=== PATIENT | female | born 1980 | race Caucasian/White ===

== ENCOUNTER 2019-06-03 12:07 | Emergency (ER) | payer BC ==
[2019-06-03 12:19] VITALS: BMI 27.4
[2019-06-03] MEDS ORDERED: ACETAMINOPHEN 1000 MG/100 ML VIAL (NON FORMULARY) IVPB ONE (13:35)
[2019-06-03] MEDS ORDERED: SODIUM CHLORIDE 0.9% 500 ML INFUS.BAG IV ONE (13:35)
[2019-06-03] MEDS ORDERED: ACETAMINOPHEN INJECTION 100 ML IVPB ONE (13:38)
--- NOTE | 2019-06-03 13:43 | PDOC ---
History of Present Illness <Aisha Greco - Last Filed: 06/03/19 16:28> - General History Source: Patient Exam Limitations: No Limitations <Remberto Ribera - Last Filed: 06/03/19 16:43> - General Chief Complaint: Syncope/Near Syncope Stated Complaint: DIABETES, FALL Time Seen by Provider: 06/03/19 12:20 Past History <Aisha Greco - Last Filed: 06/03/19 16:28> - Past Medical History Cardiac Disorders: Yes (angina) COPD: No Diabetes: Yes GI Disorders: Yes (gerd) HTN: Yes Hypercholesterolemia: Yes Thyroid Disease: No - Immunization History Immunization Up to Date: Yes - Psycho Social/Smoking Cessation Hx Smoking History: Never smoked Have you smoked in the past 12 months: No Information on smoking cessation initiated: No Hx Alcohol Use: No Drug/Substance Use Hx: No Substance Use Type: None <BacilioRemberto - Last Filed: 06/03/19 16:43> - Past Medical History Allergies/Adverse Reactions: Allergies Allergy/AdvReac Type Severity Reaction Status Date / Time No Known Allergies Allergy Verified 06/03/19 12:14 Home Medications: Ambulatory Orders Aspirin [ASA -] 81 mg PO DAILY 02/18/16 Atorvastatin Ca [Lipitor] 20 mg PO HS 02/18/16 Enalapril Maleate [Vasotec] 2.5 mg PO DAILY 02/18/16 Insulin Glargine,Hum.rec.anlog [Lantus Solostar] 24 unit SQ HS 06/03/19 Metformin HCl [Glucophage] 500 mg PO BID 06/03/19 Metoprolol Succinate 25 mg PO DAILY 06/03/19 Pantoprazole Sodium 40 mg PO DAILY 06/03/19 Sucralfate Oral Suspension [Carafate *Oral Susp*] 1 gm PO BID 06/03/19 Review of Systems - Review of Systems Able to Perform ROS?: Yes Is the patient limited Tajik proficient: No <BacilioRemberto - Last Filed: 06/03/19 16:43> *Physical Exam - Vital Signs Last Vital Signs Temp Pulse Resp BP Pulse Ox 98 F 60 20 118/74 98 06/03/19 12:14 06/03/19 14:40 06/03/19 14:40 06/03/19 14:40 06/03/19 14:40 <Aisha Greco Fanniedomingothor - Last Filed: 06/03/19 16:28> - Vital Signs Last Vital Signs Temp Pulse Resp BP Pulse Ox 98 F 62 18 134/83 100 06/03/19 12:14 06/03/19 12:14 06/03/19 12:14 06/03/19 12:14 06/03/19 12:35 <BacilioRemberto - Last Filed: 06/03/19 16:43> ED Treatment Course - LABORATORY CBC & Chemistry Diagram: 06/03/19 13:30 06/03/19 13:30 - ADDITIONAL ORDERS Additional order review: Laboratory Results 06/03/19 06/03/19 06/03/19 13:45 13:30 13:30 PT with INR 12.20 INR 1.03 PTT (Actin FS) 42.9 H Sodium 136 Potassium 4.4 Chloride 103 Carbon Dioxide 28 Anion Gap 6 L BUN 18.6 H Creatinine 0.7 Est GFR (CKD-EPI)AfAm 124.73 Est GFR (CKD-EPI)NonAf 107.62 POC Glucometer Random Glucose 137 H Calcium 9.8 Total Bilirubin 0.4 AST 14 L ALT 24 Alkaline Phosphatase 84 Creatine Kinase Troponin I Total Protein 8.5 H Albumin 4.5 Serum , Qual Negative 06/03/19 06/03/19 13:30 12:42 PT with INR INR PTT (Actin FS) Sodium Potassium Chloride Carbon Dioxide Anion Gap BUN Creatinine Est GFR (CKD-EPI)AfAm Est GFR (CKD-EPI)NonAf POC Glucometer 145 Random Glucose Calcium Total Bilirubin AST ALT Alkaline Phosphatase Creatine Kinase 84 Troponin I < 0.02 Total Protein Albumin Serum , Qual 06/03/19 06/03/19 13:30 12:42 RBC 5.16 MCV 83.5 MCHC 33.8 RDW 14.1 MPV 7.6 Neutrophils % 81.4 Lymphocytes % 12.9 D Monocytes % 4.5 Eosinophils % 1.0 Basophils % 0.2 POC Glucometer 145 - Medications Given in the ED: ED Medications Discontinued Medications Generic Name Dose Route Start Last Admin Trade Name Freq PRN Reason Stop Dose Admin Acetaminophen 1,000 mg 06/03/19 13:35 06/03/19 13:53 Ofirmev Injection - IVPB 06/03/19 13:36 1,000 mg ONCE ONE Administration Sodium Chloride 1,000 ml 06/03/19 13:35 06/03/19 13:53 Normal Saline - IV 06/03/19 13:36 1,000 ml ONCE ONE Administration <FannieAisha Mukherjee - Last Filed: 06/03/19 16:28> - LABORATORY CBC & Chemistry Diagram: 06/03/19 13:30 06/03/19 13:30 - ADDITIONAL ORDERS Additional order review: Laboratory Results 06/03/19 12:42 POC Glucometer 145 06/03/19 12:42 POC Glucometer 145 - RADIOLOGY Radiology Studies Ordered: Category Date Time Status CERVICAL SPINE CT W/O CONTR [CT] Stat CT Scan 06/03/19 13:[address] WITHOUT CONTRAST [CT] Stat CT Scan 06/03/19 13:00 Ordered <Remberto Ribera - Last Filed: 06/03/19 16:43> Medical Decision Making - Medical Decision Making 06/03/19 13:40 HPI: 39F PMH IDDM HTN HLD Endometriosis (on monthly lupron) BIBEMS after losing consciousness at home around 11am. Pt felt warm and nauseous immediately before the episode. Pt had some juice, checked her sugar (BGM 106), then stood up and lost consciousness. Pt woke up on the ground and called EMS. Endorses headstrike w/ current occipital headache. Pt has been feeling increased fatigue and chills for the last few days. Denies lightheadedness, dizziness, numbness, tingling, changes to vision/hearing. Denies chest pain, palpitations, sob, v/d. LMP 4-5 months (since she started lupron); no concerns for . PCP - Tam Mclaughlin; [facility] Pt underwent recent endoscopy w/o incident for evaluation of dysphagia to solids. Been on a liquid diet for 3 wks. NKDA Past laproscopy for endometrosis eval. ROS: CONSTITUTIONAL: Endorses chills HEENT: Endorses headache, head strike, LOC/syncope. Denies lightheadedness, dizziness, changes in vision / hearing, diplopia, blurry vision. Denies sore throat, rhinorrhea. RESP: Denies SOB, cough CARD: Denies chest pain, palpitations GI: Endorses nausea since resolved. Endorses RUQ pain x months (eval'd by GI and PCP). Denies V / D, bloody stool : Denies dysuria, hematuria, frequency SKIN: Denies rashes NEURO: Denies numbness, tingling, weakness PE: GEN: Well appearing, NAD, comfortable. AAOx3 HEENT: NC/AT - no obvious deformities, hematomas. CN II-XII intact, EOMI, PERRLA. No facial asymmetry. Moist mucous membranes, no erythema of posterior pharynx. Normal voice. Supple neck w/ FROM; +TTP paraspinal and C7. CV: S1/S2, RRR, no m/r/g LUNG: CTAB, no wheezes, crackles, rales, rhonchi. GI: soft, ndnt, +BS, no guarding, no rebound. No masses. EXTREMITIES: No LE edema. No obvious deformities of all extremities. SKIN: warm, dry, normal turgor PSYCH: normal mood and affect NEURO: 11/20 UE LE strength b/l. symmetric sensation. MDM: 39F IDDM BIBEMS w/ unwitnessed syncopal episode w/ preceeding symptoms of nausea , diaphoresis, and feeling of warmth. DDx - dehydration, hypoglycemia; unlikely but eval for ACS, anemia - CBC, CMP, Cardiac, Coag, - UA - EKG - Abd upright/lateral XR - Fluids POC 145 06/03/19 14:40 Labs reviewed and reassuring EKG 06/03/19 12:36 HR 80 PA 166 QRS 82 QTc 415 NSR - f/u CT - f/u XR - f/u UA 06/03/19 16:25 CT Head and C-spine Impression showing no fractures or acute pathology ABD XR reviewed 06/03/19 16:30 Patient feeling better DC home w/ Cardiology and PCP f/u <Remberto Ribera - Last Filed: 06/03/19 16:43> Discharge - Discharge Information Problems reviewed: Yes - Admission No <Aisha Greco - Last Filed: 06/03/19 16:28> - Discharge Information Problems reviewed: Yes - Admission No <Remberto Ribera - Last Filed: 06/03/19 16:43> - Discharge Information Clinical Impression/Diagnosis: Syncope and collapse Condition: Improved Disposition: HOME - Follow up/Referral Referrals: Wale Mclaughlin MD [Primary Care Provider] - Ernie Kern [Non Staff, Medical] - Ziyad Branch MD [Staff Physician] - - Patient Discharge Instructions Patient Printed Discharge Instructions: DI for Syncope in Adults (Fainting) Additional Instructions: HOME CARE INSTRUCTIONS: Have someone stay with you until you feel stable. Do not drive, operate machinery, or play sports until your caregiver says it is okay. Keep all follow-up appointments as directed by your caregiver. Lie down right away if you start feeling like you might faint. Breathe deeply and steadily. Wait until all the symptoms have passed.Drink enough fluids to keep your urine clear or pale yellow. If you are taking blood pressure or heart medicine, get up slowly, taking several minutes to sit and then stand. This can reduce dizziness. please stay well hydrated SEEK IMMEDIATE MEDICAL CARE IF: You have a severe headache. You have unusual pain in the chest, abdomen, or back. You are bleeding from the mouth or rectum, or you have a black or tarry stool. You have an irregular or very fast heartbeat. You have pain with breathing. You have repeated fainting or seizure- like jerking during an episode. You faint when sitting or lying down. You have confusion. You have difficulty walking. You have severe weakness. You have vision problems. If you fainted, call your local emergency services - do not drive yourself to the hospital. - Post Discharge Activity
[2019-06-03 13:48] LABS: BASO % 0.2 % (0-2.0); HEMATOCRIT 43.1 % (32.4-45.2); HEMOGLOBIN 14.6 GM/dL (10.7-15.3); LYMPH % 12.9 % (8-40); MCH 28.3 pg (25.7-33.7); MCHC 33.8 g/dl (32.0-36.0); MEAN CELL VOLUME 83.5 fl (80-96); MEAN PLT VOLUME 7.6 fl (7.5-11.1); MONO % 4.5 % (3.8-10.2); NEUT % 81.4 % (42.8-82.8); PLATELET COUNT 335 K/MM3 (134-434); RBC 5.16 M/mm3 (3.60-5.2); RDW 14.1 % (11.6-15.6); WHITE BLOOD COUNT 8.4 K/mm3 (4.0-10.0)
[2019-06-03 14:14] LABS: ALBUMIN 4.5 g/dl (3.4-5.0); BILIRUBIN,TOTAL 0.4 mg/dL (0.2-1); BLOOD UREA NITROGEN 18.6 mg/dL (7-18); CALCIUM 9.8 mg/dL (8.5-10.1); CREATININE 0.7 mg/dL (0.55-1.3); POTASSIUM 4.4 mmol/L (3.5-5.1); TOT PROT 8.5 g/dl (6.4-8.2)
--- NOTE | 2019-06-03 14:22 | PDOC ---
Attending Attestation - Resident Resident Name: Remberto Ribera - ED Attending Attestation I have performed the following: I have examined & evaluated the patient, The case was reviewed & discussed with the resident, I agree w/resident's findings & plan - HPI HPI: 06/03/19 14:29 39F PMH IDDM HTN HLD Endometriosis (on monthly lupron) BIBEMS after syncope at home around 11am. Pt felt warm and nauseous immediately before the episode. Pt had some juice, checked her sugar (BGM 106), then stood up and lost consciousness. Pt woke up on the ground and called EMS. Endorses headstrike w/ current occipital headache. Pt has been feeling increased fatigue and chills for the last few days. she recently had EGD done 3 days ago, pending the results. since then she has been in bed and sleeping. this morning she did not eat anything, got up from bed and felt flushed/dizzy. when she got to the door, she wasn't feeling well, checked her BS (106) prior to passing out. no seizure, no urinary incontinence or tongue biting no h/o syncope. 06/03/19 16:30 - Physicial Exam PE: 06/03/19 14:21 Agree with the resident's HPI and PE as documented in the electronic medical record. NAD, well appearing, EOMI, PERRL, nl conjunctiva, anicteric; neck supple, + cervical and lateral TTP. lungs clear, RRR, abdomen soft nontender. no rebound, guarding. Back nontender. TATUM x4, no focal neuro deficits. No peripheral edema. normal color for ethnicity, WWP. speech clear. gait stable. no nystagmus. SILT in all extrem, 5/5 prox and distal strength in all extrem. 06/03/19 16:31 - Medical Decision Making 06/03/19 14:22 Vital Signs Temp Pulse Resp BP Pulse Ox 98 F 62 18 134/83 100 06/03/19 12:14 06/03/19 12:14 06/03/19 12:14 06/03/19 12:14 06/03/19 12:35 DDx. syncope: considered interval abnormalities including short QTC or long QT syndrome, WPW, conduction abnormality, Brugada, ACS, PE, electrolyte disturbances, metabolic derangement. seizure, [employer] lesion, CVA, ICH. vasovagal episode. laboratory results are reviewed within normal limits, negative troponin, unremarkable EKG neuro logically intact currently, no focal deficits. No infectious findings, CT head to evaluate for bleed versus mass. Given Tylenol here for mild headache and IV fluids. No evidence of a cardiac arrhythmia such as Brugada, WPW, HOCM, Long or short QT. Neurologic exam is nonfocal, not consistent with CVA or primary neurologic abnormality. 06/03/19 14:28 Cervical spine negative for acute fracture or malalignment. Moderate C5-C6 degenerative disc changes. CT head is also unremarkable, no bleed, mass, stroke or skull fracture. Laboratory results are within normal limits including CBC, coags and electrolytes. No evidence of hyperglycemia here, glucose is 145 on fingerstick. Troponins negative, negative test. AXR unremarkable, no free air under diaphragm. headache improved. Patient is back to baseline, no complaints patient could have had an episode of hypoglycemia that resolved after intake that led to the episode of loss of consciousness. tolerating PO intake, ambulatory. likely vasovagal with history, positional changes and lack of eating this morning and not drinking enough. she has appt on 06/16 w/Dr Kern, neuro. also told to f/u cards, Dr Branch. Pt to be discharged in stable condition. Patient and family made aware of clinical impression, treatment recommendations and disposition plan, return precautions discussed (including but not limited to new or persistent/worsening symptoms, pain, fevers, or signs of infection, chest pain, respiratory distress , inability to tolerate oral intake, dehydration, syncope, or neurologic changes ). Follow up with PMD and/or neuro/cards specialist as recommended, follow up information provided, take medications as instructed for duration of time. continue with supportive care, avoid triggers and precipitants. All questions answered to patient's satisfaction and expressed understanding and comfort with this. At the time of discharge, the patient is alert, clinically improved, tolerating po and verbalizes understanding of instructions, satisfied with the care received and felt comfortable with the plan. Patient does not suffer from an acute life-threatening medical condition at this time and is safe for outpatient follow-up. 06/03/19 16:32 Heart Score/ECG Review #1 ECG reviewed & interpreted by me at: 12:40 General ECG Interpretation: Sinus Rhythm, Normal Rate, Normal Intervals 06/03/19 14:21 EKG normal sinus rhythm AT 80 BPM, no interval abnormalities, narrow QRS, ST and T wave segments and morphology normal.
[2019-06-03 14:29] LABS: INR 1.03 (0.83-1.09); PROTHROMBIN TIME (PATIENT) 12.2 SEC (9.7-13.0)
[2019-06-03 14:32] LABS: ACTIVATED PTT 42.9 SECONDS (25.2-36.5)
[2019-06-03 16:49] VITALS: BP 122/70; PULSE 68; TEMP 98.2
--- NOTE | 2019-06-04 17:06 | EKG ---
Test Reason : Blood Pressure : / mmHG Vent. Rate : 080 BPM Atrial Rate : 080 BPM P-R Int : 166 ms QRS Dur : 082 ms QT Int : 360 ms P-R-T Axes : 045 045 041 degrees QTc Int : 415 ms NORMAL SINUS RHYTHM WITH SINUS ARRHYTHMIA NORMAL ECG WHEN COMPARED WITH ECG OF 29-FEB-2016 04:21, NO SIGNIFICANT CHANGE WAS FOUND Confirmed by MARIAA BRAGG MD ([id number]) on 06/04/2019 5:06:12 PM Referred By: Confirmed By:MARIAA BRAGG MD
== END 2019-06-03 16:49 | disposition home or self-care (01) ==
LOC: JER 12:07
PROC: 3E033NZ Introduction of Analgesics, Hypnotics, Sedatives into Peripheral Vein, Percutaneous Approach (ICD-10-PCS; principal; 2019-06-03)
DX: R55 Syncope and collapse (principal); S09.8XXA Other specified injuries of head, initial encounter; R51 Headache; W18.39XA Other fall on same level, initial encounter; Y92.038 Other place in apartment as the place of occurrence of the external cause; Y99.8 Other external cause status; Y93.89 Activity, other specified; I25.119 Atherosclerotic heart disease of native coronary artery with unspecified angina pectoris; I10 Essential (primary) hypertension; E11.9 Type 2 diabetes mellitus without complications; Z79.4 Long term (current) use of insulin; E78.5 Hyperlipidemia, unspecified; E78.00 Pure hypercholesterolemia, unspecified; Z79.82 Long term (current) use of aspirin
CPT/HCPCS: 36415; 70450-TC; 72125-TC; 74019-TC-FY; 80053; 82550; 82962; 84484; 84703; 85025; 85610; 85730; 93005; 93010; 99284-25; J0131

== ENCOUNTER → 2023-09-07 | Day surgery (SDC) | payer BC | END | disposition home or self-care (01) | LOC: JRADIR 10:22 | PROVIDERS: ATTEND Internal Medicine Endocrinology, Diabetes & Metabolism | PROC: 0G9H3ZX Drainage of Right Thyroid Gland Lobe, Percutaneous Approach, Diagnostic (ICD-10-PCS; principal; 2023-09-07) | DX: E04.1 Nontoxic single thyroid nodule (principal) | CPT/HCPCS: 10005; 76942; 88173; 88305-TC ==

== ENCOUNTER 2025-04-27 15:56 | Day surgery (SDC) | payer BC ==
[~2025-04-27 15:56] MED LIST: IRON SUCROSE INJECTION 300 MG in SODIUM CHLORIDE 250 ML IVPB ONE
[2025-04-27] MEDS: IRON SUCROSE INJECTION 300 MG in SODIUM CHLORIDE 250 ML IVPB ONE (16:05)
[2025-04-27 16:10] VITALS: RESP 18
[2025-04-27 18:12] VITALS: BP 115/82; PULSE 86; TEMP 98.7
== END 2025-04-27 18:00 | disposition home or self-care (01) ==
LOC: JONCNONCHE 15:56 → J7W 15:57 → JONCNONCHE 18:00
PROVIDERS: ATTEND Internal Medicine Hematology & Oncology
PROC: 3E033GC Introduction of Other Therapeutic Substance into Peripheral Vein, Percutaneous Approach (ICD-10-PCS; principal; 2025-04-27)
DX: D50.9 Iron deficiency anemia, unspecified (principal)
CPT/HCPCS: J1756

== ENCOUNTER 2025-05-04 16:11 | Day surgery (SDC) | payer BC ==
[2025-05-04] MEDS: IRON SUCROSE INJECTION 300 MG in SODIUM CHLORIDE 250 ML IVPB ONE (16:10)
[2025-05-04 16:15] VITALS: RESP 18; TEMP 98.6
[2025-05-04 18:12] VITALS: BP 131/79; PULSE 80
== END 2025-05-04 18:14 | disposition home or self-care (01) ==
LOC: JONCNONCHE 16:11
PROVIDERS: ATTEND Internal Medicine Hematology & Oncology
PROC: 3E033GC Introduction of Other Therapeutic Substance into Peripheral Vein, Percutaneous Approach (ICD-10-PCS; principal; 2025-05-04)
DX: D50.9 Iron deficiency anemia, unspecified (principal)
CPT/HCPCS: 96365; J1756

== ENCOUNTER 2025-05-11 12:01 | Day surgery (SDC) | payer BC ==
[2025-05-11] MEDS: IRON SUCROSE INJECTION 300 MG in SODIUM CHLORIDE 250 ML IVPB ONE (13:15)
[2025-05-11 13:33] VITALS: RESP 18
[2025-05-11 13:37] VITALS: TEMP 98.2
[2025-05-11] MEDS: ACETAMINOPHEN 500 MG TABLET (FP) PO ONE (14:36)
[2025-05-11 15:28] VITALS: BP 107/71; PULSE 93
== END 2025-05-11 15:15 | disposition home or self-care (01) ==
LOC: JONCNONCHE 12:01
PROVIDERS: ATTEND Internal Medicine Hematology & Oncology
PROC: 3E033GC Introduction of Other Therapeutic Substance into Peripheral Vein, Percutaneous Approach (ICD-10-PCS; principal; 2025-05-11)
DX: E61.1 Iron deficiency (principal)
CPT/HCPCS: J1756